=== PATIENT | female | born 1980 | race Hispanic/Latino ===

== ENCOUNTER 2020-05-21 05:12 | Inpatient (IN) | payer OTHER ==
[~2020-05-21] VITALS: Ht 165.1 cm; Wt 66.2 kg
[2020-05-21] MEDS ORDERED: 0.9%NACL 1000ML 2,000 ML IV ONE (05:22)
[2020-05-21] MEDS ORDERED: PANTOPRAZOLE 40 MG/VIAL ONE (05:24)
[2020-05-21] MEDS ORDERED: ONDANSETRON 4MG INJ ONE (05:25)
[2020-05-21] MEDS ORDERED: METOCLOPRAMIDE 10 MG/2 ML VIAL ONE (05:25)
[2020-05-21 05:27] LABS: BASOPHILS % (AUTO) 0.6 % (0.0-5.0); EOSINOPHILS % (AUTO) 1.5 % (0.0-8.0); HEMATOCRIT 39.5 % (36-48); LYMPHOCYTES % (AUTO) 22.5 % (21.0-51.0); MEAN CORPUSCULAR HGB CONC 34.2 g/dL (32.0-36.0); MEAN CORPUSCULAR VOLUME 84.8 fL (79-99); MONOCYTES % (AUTO) 11.5 % (3.0-13.0); NEUTROPHILS % (AUTO) 63.5 % (40.0-77.0); PLATELET COUNT (AUTO) 300 K/uL (130-400); RED BLOOD CELL COUNT(AUTO) 4.66 MIL/uL (4.00-5.50); RED CELL DISTRIBUTION WIDTH 13.4 % (11.0-15.5); WHITE BLOOD COUNT (AUTO) 11.2 K/uL (4.8-10.8)
[2020-05-21] MEDS ORDERED: LORAZEPAM 2 MG/ML 1 ML VIAL ONE ×2 (05:27→06:27)
[2020-05-21] MEDS ORDERED: FAMOTIDINE 20MG VIAL IV ONE (05:28)
[2020-05-21] MEDS ORDERED: IOHEXOL-350 75 ML VIAL IV ONE (05:47)
[2020-05-21 05:48] LABS: POTASSIUM 4.1 mmol/L (3.5-5.1)
[2020-05-21 05:49] LABS: APPEARANCE,URINE Clear (CLEAR); BILIRUBIN,URINE Negative (NEGATIVE); COLOR,URINE Yellow (YELLOW); GLUCOSE, URINE (UA) Negative (NEGATIVE); KETONES,URINE 15 mg/dL (NEGATIVE); LEUKOCYTE ESTERASE ,URINE Moderate (NEGATIVE); NITRATE,URINE Negative (NEGATIVE); OCCULT BLOOD,URINE Negative (NEGATIVE); PROTEIN,URINE Negative (NEGATIVE); UROBILINOGEN,URINE 0.2 mg/dL (0.2-1.0)
[2020-05-21] MEDS ORDERED: DiphenhydrAMINE HCL 50 MG/ML VIAL ONE (05:49)
[2020-05-21 05:52] LABS: ALBUMIN 3.9 g/dL (3.5-5.0); BILIRUBIN,TOTAL 0.4 mg/dL (0.2-1.0); TOTAL PROTEIN, SERUM 7.7 g/dL (6.0-8.3)
[2020-05-21] MEDS ORDERED: FENTANYL CITRATE PF 50 MCG/1 ML 2ML VIAL ONE ×2 (06:00→06:14)
[2020-05-21 06:02] LABS: BACTERIA,URINE None Seen /HPF (None Seen); RBC,URINE None Seen /HPF (0-1)
[2020-05-21] MEDS ORDERED: HALOPERIDOL INJ 5 MG/ML VIAL ONE (06:26)
[2020-05-21] MEDS ORDERED: TRAMADOL HCL 50 MG TABLET ONE (10:22)
[2020-05-21] MEDS: 0.9%NACL 1000ML 1,000 ML IV SCH ×2 (10:30→20:30)
[2020-05-21] MEDS ORDERED: DiphenhydrAMINE HCL 50 MG/ML VIAL IV PRN (10:30)
[2020-05-21] MEDS ORDERED: ACETAMINOPHEN 325 MG TAB PO PRN ×2 (10:30)
[2020-05-21] MEDS ORDERED: TRAMADOL HCL 50 MG TABLET PO SCH (10:30)
[2020-05-21] MEDS ORDERED: TRAMADOL HCL 50 MG TABLET PO ONE (10:30)
[2020-05-21 10:59] LABS: CHOLESTEROL 178 mg/dL (<200); HDL CHOLESTEROL 41 mg/dL (35-85); LDL DIRECT 113 mg/dL (0-99); TRIGLYCERIDES 133 mg/dL (30-200)
[2020-05-21] MEDS ORDERED: CEFTRIAXONE 1G VIAL ONE (11:43)
[2020-05-21] MEDS ORDERED: 0.9%NACL 100ML 100 ML IV ONE (11:44)
[2020-05-21 11:49] VITALS: BP 144/83
[2020-05-21] MEDS ORDERED: METRONIDAZOLE 500MG/100ML BAG 100 ML ONE (16:35)
[2020-05-21 20:37] LABS: HEMATOCRIT 37.5 % (36-48)
[2020-05-21 22:00] VITALS: BP 102/68
[2020-05-21] MEDS: FAMOTIDINE 20MG VIAL IV SCH (22:10)
[2020-05-21] MEDS: CEFTRIAXONE 1G VIAL IV SCH (23:28)
[2020-05-22] VITALS (15 sets, daily range): BP systolic 81–174; BP diastolic 39–106
[2020-05-22] MEDS: METRONIDAZOLE 500MG/100ML BAG 100 ML IV SCH ×3 (02:27→18:23)
[2020-05-22 05:35] LABS: BASOPHILS % (AUTO) 0.7 % (0.0-5.0); EOSINOPHILS % (AUTO) 2.7 % (0.0-8.0); HEMATOCRIT 37.4 % (36-48); LYMPHOCYTES % (AUTO) 25.3 % (21.0-51.0); MEAN CORPUSCULAR HEMOGLOBIN 28.9 pg (27.0-33.0); PLATELET COUNT (AUTO) 261 K/uL (130-400); RED CELL DISTRIBUTION WIDTH 13.6 % (11.0-15.5); WHITE BLOOD COUNT (AUTO) 6.9 K/uL (4.8-10.8)
[2020-05-22 06:05] LABS: ALBUMIN 2.9 g/dL (3.5-5.0); BILIRUBIN,TOTAL 0.5 mg/dL (0.2-1.0); CREATININE 0.9 mg/dL (0.5-1.5); POTASSIUM 3.7 mmol/L (3.5-5.1); TOTAL PROTEIN, SERUM 6.2 g/dL (6.0-8.3)
[2020-05-22] MEDS: 0.9%NACL 1000ML 1,000 ML IV SCH ×2 (06:30→16:30)
[2020-05-22] MEDS ORDERED: GADODIAMIDE 10 MMOL/20 ML VIAL IV ONE (07:49)
[2020-05-22] MEDS: FAMOTIDINE 20MG VIAL IV SCH ×2 (10:36→20:18)
[2020-05-22] MEDS: CEFTRIAXONE 1G VIAL IV SCH ×2 (10:36→20:18)
[2020-05-22] MEDS: MORPHINE 2 MG SYG IV PRN ×3 (10:41→20:19)
[2020-05-22] MEDS ORDERED: SUCCINYLCHOLINE CHLORIDE 20 MG/ML 10 ML VIAL ONE (12:28)
[2020-05-22] MEDS ORDERED: FENTANYL CITRATE PF 50 MCG/1 ML 2ML VIAL ONE (12:28)
[2020-05-22] MEDS ORDERED: PROPOFOL 10 MG/ML 20ML VIAL IV ONE (12:28)
[2020-05-22] MEDS ORDERED: MIDAZOLAM HCL 1 MG/ML 2ML VIAL ONE (12:28)
[2020-05-22] MEDS ORDERED: PHENYLEPHRINE HCL 10 MG/ML 1ML VIAL IV ONE (12:49)
[2020-05-22] MEDS ORDERED: IOHEXOL-350 50ML VIAL IV ONE (12:52)
[2020-05-22] MEDS ORDERED: INDOMETHACIN 50 MG SUPP.RECT RC ONE (13:30)
[2020-05-22] MEDS: ONDANSETRON 4MG INJ IV PRN (14:18)
[2020-05-22] MEDS ORDERED: DiphenhydrAMINE HCL 25 MG/10 ML ELIXIR UDCUP PO PRN (21:45)
[2020-05-22 21:54] LABS: POTASSIUM 3.4 mmol/L (3.5-5.1)
[2020-05-22 22:00] LABS: ALBUMIN 3.1 g/dL (3.5-5.0); BILIRUBIN,TOTAL 0.7 mg/dL (0.2-1.0); TOTAL PROTEIN, SERUM 6.3 g/dL (6.0-8.3)
[2020-05-23 03:45] VITALS: BP 99/62
[2020-05-23] MEDS: METRONIDAZOLE 500MG/100ML BAG 100 ML IV SCH ×2 (04:03→08:35)
[2020-05-23] MEDS: MORPHINE 2 MG SYG IV PRN ×3 (04:03→20:07)
[2020-05-23] MEDS ORDERED: LIDOCAINE HCL-MPF 1% 2ML VIAL IV PRN (05:30)
[2020-05-23] MEDS ORDERED: KCL 20 MEQ ERTAB PO PRN (05:30)
[2020-05-23] MEDS ORDERED: POTASSIUM CHLORIDE 20MEQ/100ML 100 ML IV PRN (05:30)
[2020-05-23] MEDS ORDERED: POTASSIUM CHLORIDE 10% ELIXIR 20 MEQ/15 ML UDCUP ONE (05:49)
[2020-05-23 05:59] LABS: BASOPHILS % (AUTO) 0.6 % (0.0-5.0); HEMATOCRIT 35.3 % (36-48); LYMPHOCYTES % (AUTO) 21.9 % (21.0-51.0); MEAN CORPUSCULAR HEMOGLOBIN 28.8 pg (27.0-33.0); MEAN CORPUSCULAR VOLUME 84.9 fL (79-99); MONOCYTES % (AUTO) 6.7 % (3.0-13.0); NEUTROPHILS % (AUTO) 68.5 % (40.0-77.0); PLATELET COUNT (AUTO) 272 K/uL (130-400); RED BLOOD CELL COUNT(AUTO) 4.16 MIL/uL (4.00-5.50); RED CELL DISTRIBUTION WIDTH 13.4 % (11.0-15.5); WHITE BLOOD COUNT (AUTO) 9.1 K/uL (4.8-10.8)
[2020-05-23] MEDS: ONDANSETRON 4MG INJ IV PRN (08:33)
[2020-05-23] MEDS: CEFTRIAXONE 1G VIAL IV SCH ×2 (08:35→20:05)
[2020-05-23] MEDS: 0.9%NACL 1000ML 1,000 ML IV SCH ×2 (08:43→20:07)
[2020-05-23] MEDS ORDERED: PANTOPRAZOLE 40 MG/VIAL ONE (08:43)
[2020-05-23] MEDS: FAMOTIDINE 20MG VIAL IV SCH (08:43)
[2020-05-23 08:45] VITALS: BP 105/65
[2020-05-23] MEDS: PANTOPRAZOLE 40 MG/VIAL IVP SCH ×2 (12:53→20:06)
[2020-05-23] MEDS: ZOSYN 3.375GM+NS 50ML 50 ML IV SCH ×2 (13:12→20:05)
[2020-05-23 14:18] VITALS: BP 112/72
[2020-05-23 17:25] VITALS: BP 120/86
[2020-05-23] MEDS ORDERED: ALLEGRA PO (19:41)
[2020-05-23] MEDS ORDERED: LEVO5TAB29 PO (19:41)
[2020-05-23] MEDS ORDERED: DIPH25TA51 PO (19:41)
[2020-05-23] MEDS ORDERED: LORA10TA7 PO (19:41)
[2020-05-23 20:00] VITALS: BP 96/64
[2020-05-23] MEDS: POTASSIUM CHLORIDE 10% ELIXIR 20 MEQ/15 ML UDCUP PO PRN ×2 (20:06→22:57)
[2020-05-24] VITALS (7 sets, daily range): BP systolic 91–110; BP diastolic 43–68
[2020-05-24] MEDS: MORPHINE 2 MG SYG IV PRN ×3 (00:16→08:18)
[2020-05-24] MEDS: ZOSYN 3.375GM+NS 50ML 50 ML IV SCH ×3 (04:16→22:02)
[2020-05-24] MEDS: 0.9%NACL 1000ML 1,000 ML IV SCH ×3 (04:16→15:10)
[2020-05-24 05:55] LABS: BASOPHILS % (AUTO) 0.4 % (0.0-5.0); HEMATOCRIT 36.2 % (36-48); LYMPHOCYTES % (AUTO) 24.9 % (21.0-51.0); MEAN CORPUSCULAR HEMOGLOBIN 28.7 pg (27.0-33.0); MEAN CORPUSCULAR HGB CONC 33.4 g/dL (32.0-36.0); MEAN CORPUSCULAR VOLUME 85.8 fL (79-99); MONOCYTES % (AUTO) 7.3 % (3.0-13.0); NEUTROPHILS % (AUTO) 64.9 % (40.0-77.0); PLATELET COUNT (AUTO) 309 K/uL (130-400); RED BLOOD CELL COUNT(AUTO) 4.22 MIL/uL (4.00-5.50); RED CELL DISTRIBUTION WIDTH 13.6 % (11.0-15.5); WHITE BLOOD COUNT (AUTO) 9.9 K/uL (4.8-10.8)
[2020-05-24 06:16] LABS: CREATININE 0.8 mg/dL (0.5-1.5); POTASSIUM 3.6 mmol/L (3.5-5.1)
[2020-05-24] MEDS: POTASSIUM CHLORIDE 10% ELIXIR 20 MEQ/15 ML UDCUP PO PRN (06:51)
[2020-05-24] MEDS: CEFTRIAXONE 1G VIAL IV SCH ×2 (10:30→22:02)
[2020-05-25] VITALS (24 sets, daily range): BP systolic 98–143; BP diastolic 42–84
[2020-05-25] MEDS: 0.9%NACL 1000ML 1,000 ML IV SCH ×4 (02:08→17:03)
[2020-05-25 05:11] LABS: BASOPHILS % (AUTO) 0.5 % (0.0-5.0); EOSINOPHILS % (AUTO) 2.8 % (0.0-8.0); HEMATOCRIT 36.5 % (36-48); LYMPHOCYTES % (AUTO) 26.7 % (21.0-51.0); MEAN CORPUSCULAR HEMOGLOBIN 28.7 pg (27.0-33.0); MEAN CORPUSCULAR HGB CONC 33.7 g/dL (32.0-36.0); MEAN CORPUSCULAR VOLUME 85.3 fL (79-99); MONOCYTES % (AUTO) 5.7 % (3.0-13.0); PLATELET COUNT (AUTO) 343 K/uL (130-400); RED BLOOD CELL COUNT(AUTO) 4.28 MIL/uL (4.00-5.50); RED CELL DISTRIBUTION WIDTH 13.4 % (11.0-15.5); WHITE BLOOD COUNT (AUTO) 10.5 K/uL (4.8-10.8)
[2020-05-25 05:38] LABS: ALBUMIN 3.3 g/dL (3.5-5.0); BILIRUBIN,TOTAL 0.4 mg/dL (0.2-1.0); CREATININE 0.7 mg/dL (0.5-1.5); POTASSIUM 3.6 mmol/L (3.5-5.1); TOTAL PROTEIN, SERUM 6.8 g/dL (6.0-8.3)
[2020-05-25] MEDS: ZOSYN 3.375GM+NS 50ML 50 ML IV SCH ×3 (06:22→20:44)
[2020-05-25] MEDS ORDERED: KETOROLAC 15MG/ML VIAL (15MG/ML) IV PRN (08:00)
[2020-05-25] MEDS: CEFTRIAXONE 1G VIAL IV SCH ×2 (11:01→20:43)
[2020-05-25] MEDS ORDERED: BUPIVACAINE/PF 0.25% 30ML VIAL IJ ONE (16:34)
[2020-05-25] MEDS ORDERED: LIDOCAINE 1%-EPI 1:100,000 20 ML VIAL IJ ONE (16:34)
[2020-05-25] MEDS ORDERED: LACTATED RINGERS 1000ML 1,000 ML IV ONE (17:03)
[2020-05-25] MEDS ORDERED: LIDOCAINE PF 100MG/5ML (2%) SYRINGE 5ML ONE (17:11)
[2020-05-25] MEDS ORDERED: MIDAZOLAM HCL 1 MG/ML 2ML VIAL ONE (17:12)
[2020-05-25] MEDS ORDERED: ONDANSETRON 4MG INJ ONE (17:12)
[2020-05-25] MEDS ORDERED: PROPOFOL 10 MG/ML 20ML VIAL IV ONE ×2 (17:13→18:48)
[2020-05-25] MEDS ORDERED: FENTANYL CITRATE PF 50 MCG/1 ML 2ML VIAL ONE ×3 (17:13→18:21)
[2020-05-25] MEDS ORDERED: ROCURONIUM 10MG/1ML SYR 10 MG/ML ML ONE (17:13)
[2020-05-25] MEDS ORDERED: KETOROLAC 30MG VIAL (30MG/ML) ONE (18:21)
[2020-05-25] MEDS ORDERED: GLYCOPYRROLATE 1 MG/5 ML SYRINGE ONE (18:22)
[2020-05-25] MEDS ORDERED: NEOSTIGMINE 5MG/5ML SYR IV ONE (18:23)
[2020-05-25] MEDS: MORPHINE 2 MG SYG IV PRN (19:04)
[2020-05-25] MEDS ORDERED: MEPERIDINE-PF 25 MG/ML SYG ONE (19:37)
[2020-05-25] MEDS: HYDROMORPHONE 1 MG INJ IVP PRN (20:44)
[2020-05-26] MEDS: OXYCODONE/ACETAMIN 5/325MG TAB PO PRN ×2 (00:39→09:09)
[2020-05-26] MEDS: 0.9%NACL 1000ML 1,000 ML IV SCH (01:01)
[2020-05-26] MEDS: HYDROMORPHONE 1 MG INJ IVP PRN ×2 (01:54→06:11)
[2020-05-26 04:00] VITALS: BP 113/70
[2020-05-26 05:33] LABS: BASOPHILS % (AUTO) 0.1 % (0.0-5.0); EOSINOPHILS % (AUTO) 0.2 % (0.0-8.0); HEMATOCRIT 34.6 % (36-48); LYMPHOCYTES % (AUTO) 15.1 % (21.0-51.0); MEAN CORPUSCULAR HEMOGLOBIN 28.4 pg (27.0-33.0); MEAN CORPUSCULAR HGB CONC 33.5 g/dL (32.0-36.0); MEAN CORPUSCULAR VOLUME 84.8 fL (79-99); MONOCYTES % (AUTO) 4.4 % (3.0-13.0); NEUTROPHILS % (AUTO) 79.8 % (40.0-77.0); PLATELET COUNT (AUTO) 333 K/uL (130-400); RED BLOOD CELL COUNT(AUTO) 4.08 MIL/uL (4.00-5.50); RED CELL DISTRIBUTION WIDTH 13.2 % (11.0-15.5); WHITE BLOOD COUNT (AUTO) 10.6 K/uL (4.8-10.8)
[2020-05-26 06:00] LABS: ALBUMIN 2.9 g/dL (3.5-5.0); BILIRUBIN,TOTAL 0.3 mg/dL (0.2-1.0); CREATININE 0.9 mg/dL (0.5-1.5); POTASSIUM 3.7 mmol/L (3.5-5.1); TOTAL PROTEIN, SERUM 6.1 g/dL (6.0-8.3)
[2020-05-26] MEDS: ZOSYN 3.375GM+NS 50ML 50 ML IV SCH (06:16)
[2020-05-26 08:07] VITALS: BP 107/76
[2020-05-26] MEDS ORDERED: SIME80TA12 PO (08:56)
[2020-05-26] MEDS ORDERED: SIMETHICONE 80 MG TAB.CHEW PO SCH (09:00)
== END 2020-05-26 10:06 | disposition home or self-care (01) | DRG 417 ==
LOC: EDH 05:12 → EDHIP 10:27 → EDBD 10:27 → OBSVTOIN 10:27 → 3AH 21:41
PROVIDERS: ADMIT Family Medicine; ATTEND Family Medicine
PROC: 0FC98ZZ Extirpation of Matter from Common Bile Duct, Via Natural or Artificial Opening Endoscopic (ICD-10-PCS; 2020-05-22)
PROC: 0FT44ZZ Resection of Gallbladder, Percutaneous Endoscopic Approach (ICD-10-PCS; principal; 2020-05-25 17:38)
DX: K80.63 Calculus of gallbladder and bile duct with acute cholecystitis with obstruction (principal); K85.90 Acute pancreatitis without necrosis or infection, unspecified; E86.0 Dehydration; R74.8 Abnormal levels of other serum enzymes; F17.200 Nicotine dependence, unspecified, uncomplicated; K82.8 Other specified diseases of gallbladder; Z82.49 Family history of ischemic heart disease and other diseases of the circulatory system; R74.01 Elevation of levels of liver transaminase levels; F41.9 Anxiety disorder, unspecified; Y92.9 Unspecified place or not applicable
CPT/HCPCS: 36415; 74177; 74183; 74330; 76700; 78226; 80048; 80053; 80061; 81001; 81025; 82150; 83605; 83690; 84145; 84484; 85014; 85018; 85025; 87040; 87088; 93005; A9537; A9579; C9113; G0378; J0330; J0696; J1170; J1200; J1630; J1885; J2001; J2060; J2175; J2250; J2370; J2405; J2543; J2704; J2710; J2765; J3010; J3490; J7030; J7120; Q9967